=== PATIENT | male | born 1975 | race Caucasian/White ===

== ENCOUNTER 2017-02-26 21:37 | Emergency (ER) | payer SELFPAY | END 2017-02-26 23:08 | disposition home or self-care (01) | LOC: D.ER 21:37 | DX: S61.412A Laceration without foreign body of left hand, initial encounter (principal); W26.8XXA Contact with other sharp object(s), not elsewhere classified, initial encounter; Y93.H2 Activity, gardening and landscaping; Y92.018 Other place in single-family (private) house as the place of occurrence of the external cause ==